=== PATIENT | female | born 1960 | race Caucasian/White ===

== ENCOUNTER 2020-03-09 15:04 | Emergency (ER) | payer OTHER ==
--- NOTE | 2020-03-09 15:37 | ED ---
Extremity Problem HPI - General Source: patient, EMS Mode of arrival: EMS Limitations: physical limitation <Josefa Moya - Last Filed: 03/09/20 18:38> <Isabella Cervantes - Last Filed: 03/17/20 13:25> - General Chief complaint: Extremity Problem,Nontraumatic Stated complaint: fall/leg pain Time Seen by Provider: 03/09/20 15:08 - History of Present Illness Initial comments: Patient is a 59-year-old female, History of CVA with left-sided weakness, presenting to the emergency Department as a transfer from [facility]. She states she has been having right lower foot pain and redness for the past day and was concerned for DVT. She was recently in the hospital one week ago after a fall and is currently being treated for a UTI and is on Keflex. Patient did receive IV antibiotics, Toradol and Dilaudid before transfer today. She denies any injuries or trauma to this foot. She denies any recent fever or chills. She has no further complaints today. Upon arrival to the ER her vitals are stable. (Josefa Moya) - Related Data Previous Rx's Medication Instructions Recorded Cephalexin [Keflex] 500 mg PO Q6HR 3 Days #16 cap 03/09/20 Allergies Allergy/AdvReac Type Severity Reaction Status Date / Time No Known Allergies Allergy Verified 03/09/20 15:14 Review of Systems ROS Other: All systems not noted in ROS Statement are negative. <Josefa Moya - Last Filed: 03/09/20 18:38> ROS Other: All systems not noted in ROS Statement are negative. <Isabella Cervantes - Last Filed: 03/17/20 13:25> ROS Statement: Those systems with pertinent positive or pertinent negative responses have been documented in the HPI. Past Medical History Past Medical History: CVA/TIA Additional Past Medical History / Comment(s): morbid obesity. History of Any Multi-Drug Resistant Organisms: None Reported Additional Past Surgical History / Comment(s): Blood clot removed from behind a heart, alexandro. Past Psychological History: Depression Smoking Status: Former smoker Past Alcohol Use History: None Reported Past Drug Use History: None Reported <Josefa Moya - Last Filed: 03/09/20 18:38> General Exam Limitations: physical limitation <Josefa Moya Last Filed: 03/09/20 18:38> - General Exam Comments Initial Comments: GENERAL: Well-appearing, well-nourished and in no acute distress. HEAD: Atraumatic, normocephalic. EYES: Pupils equal round and reactive to light, extraocular movements intact, sclera anicteric, conjunctiva are normal. ENT: TMs normal, nares patent, oropharynx clear without exudates. Moist mucous membranes. NECK: Normal range of motion, supple without lymphadenopathy or JVD. LUNGS: Breath sounds clear to auscultation bilaterally and equal. No wheezes rales or rhonchi. HEART: Regular rate and rhythm without murmurs, rubs or gallops. ABDOMEN: Soft, nontender, normoactive bowel sounds. No guarding, no rebound. No masses appreciated. : Deferred EXTREMITIES: Left-sided weakness secondary to previous stroke. Right lower leg has no tenderness on palpation. There is some mild erythema on the dorsal aspect of the right foot. She does have normal range of motion of the right ankle and foot. Neurovascular intact. NEUROLOGICAL: Cranial nerves II through XII grossly intact. Normal speech. PSYCH: Normal mood, normal affect. SKIN: Warm, Dry, normal turgor, no rashes. (Josefa Moya) Course Vital Signs 03/09/20 03/09/20 15:09 18:10 Temperature 98.3 F 98.2 F Pulse Rate 84 81 Respiratory 18 16 Rate Blood Pressure 120/65 111/80 O2 Sat by Pulse 98 99 Oximetry Medical Decision Making <Josefa Moya - Last Filed: 03/09/20 18:38> <Isabella Cervantes - Last Filed: 03/17/20 13:25> - Medical Decision Making Patient is a 59-year-old female here as a transfer from [facility] to rule out a DVT of her right lower extremity. She is currently being treated for a UTI with Keflex twice a day. Ultrasound today shows no evidence of acute DVT. She does have some mild erythema on the dorsal aspect of her right foot. I did recommend to increase her dose of Keflex to 4 times a day for a total of 7 days. Patient already has a prescription for 16 tablets I did give her another prescription for a total of 7 days. Patient is stable for discharge. She is agreement with this plan of care. Return parameters were discussed with the patient she verbalized understanding. Case discussed with Dr. Cervantes. (Josefa Moya) I was available for consultation in the emergency department. The history and physical exam were done by the midlevel provider. I was consulted for this patients care. I reviewed the case with the midlevel provider and based on their presentation of the patient, I agree with the assessment, medical decision making and plan of care as documented. Chart was dictated using [employer] dictation software. Attempts were made to correct any dictation errors however some typographical errors may persist. Patient was seen during a national state of emergency due to the Covid-19 pandemic. (Isabella Cervantes) Disposition Is patient prescribed a controlled substance at d/c from ED?: No <Josefa Moya - Last Filed: 03/09/20 18:38> <Isabella Cervantes - Last Filed: 03/17/20 13:25> Clinical Impression: Cellulitis of right foot Disposition: HOME SELF-CARE Condition: Stable Instructions (If sedation given, give patient instructions): Cellulitis (ED) Additional Instructions: Please return to the Emergency Department if symptoms worsen or any other concerns. Take antibiotic as prescribed, 4 times a day for a total of 7 days. Follow-up with PCP tomorrow as discussed. Prescriptions: Cephalexin [Keflex] 500 mg PO Q6HR 3 Days #16 cap Referrals: Adriana Ackerman [facility] [REFERRING] - 1-2 days
--- NOTE | 2020-03-09 16:10 | US ---
EXAMINATION TYPE: US venous doppler duplex LE RT DATE OF EXAM: 03/09/2020 4:03 PM COMPARISON: NONE CLINICAL HISTORY: rt foot pain, erythema, no injury. Difficult exam due to patient body habitus SIDE PERFORMED: Right TECHNIQUE: The lower extremity deep venous system is examined utilizing real time linear array sonog jessi with graded compression, doppler sonography and color-flow sonography. VESSELS IMAGED: External Iliac Vein (EIV) Common Femoral Vein Deep Femoral Vein Greater Saphenous Vein * Femoral Vein Popliteal Vein Small Saphenous Vein * Proximal Calf Veins (* superficial vessels) Right Leg: Negative for DVT IMPRESSION: No evidence of deep vein thrombosis in the right leg.
[2020-03-09 18:13] VITALS: BP 111/80; PULSE 81; RESP 16; TEMP 98.2
== END 2020-03-09 18:13 | disposition home or self-care (01) ==
LOC: EC 15:04
DX: L03.115 Cellulitis of right lower limb (principal); I69.354 Hemiplegia and hemiparesis following cerebral infarction affecting left non-dominant side; E66.01 Morbid (severe) obesity due to excess calories; Z87.891 Personal history of nicotine dependence; Z68.41 Body mass index [BMI] 40.0-44.9, adult
CPT/HCPCS: 99284